=== PATIENT | female | born 1995 | race Caucasian/White ===

== ENCOUNTER 2018-02-17 10:02 | Emergency (ER) | payer BC ==
[2018-02-17 11:01] VITALS: BP 111/60
--- NOTE | 2018-02-17 11:57 | UC ---
Complaint Female HPI - HPI Summary HPI Summary: 22 year old female with UTI Sx. c/o dysuria, urinary urgency and frequency beginning this morning. macrobid allergy : GI upset no fever. no n/v/d. had these in past feels like that [ End ] - History Of Current Complaint Chief Complaint: UCGU Stated Complaint: URINARY COMPLAINT Time Seen by Provider: 02/17/18 11:26 Hx Obtained From: Patient Hx Last Menstrual Period: 02/03/18 Onset/Duration: Sudden Onset Timing: Constant Severity Initially: Moderate Severity Currently: Moderate Pain Intensity: 0 - Allergies/Home Medications Allergies/Adverse Reactions: Allergies Allergy/AdvReac Type Severity Reaction Status Date / Time nitrofurantoin AdvReac Nausea Verified 02/17/18 10:58 PMH/Surg Hx/FS Hx/Imm Hx Previously Healthy: Yes - Surgical History Surgical History: Yes Surgery Procedure, Year, and Place: T&A. B/L EAR TUBES - Family History Known Family History: Positive: Diabetes - gradma Negative: Cardiac Disease - Social History Occupation: Employed Full-time - maintainence Lives: With Family Alcohol Use: Weekly Substance Use Type: None Smoking Status (MU): Never Smoked Tobacco - Immunization History Vaccination Up to Date: Yes Review of Systems Genitourinary: Dysuria, Frequency, Urgency Is Patient Immunocompromised?: No All Other Systems Reviewed And Are Negative: Yes Physical Exam Triage Information Reviewed: Yes Appearance: Well-Appearing, No Pain Distress, Well-Nourished Vital Signs: Initial Vital Signs Temp 98.5 F 02/17/18 10:55 Pulse 62 02/17/18 10:55 Resp 15 02/17/18 10:55 BP 111/60 02/17/18 10:55 Pulse Ox 100 02/17/18 10:55 Vital Signs Reviewed: Yes Eye Exam: Normal Neck: Positive: 1 Respiratory Exam: Normal Cardiovascular Exam: Normal Abdominal Exam: Normal Musculoskeletal Exam: Normal Neurological Exam: Normal Psychological Exam: Normal Skin Exam: Normal Complaint Female Dx - Course Course Of Treatment: f/u with PCP. Treat at this time. - Differential Dx/Diagnosis Differential Diagnosis/HQI/PQRI: Urinary Tract Infection Provider Diagnoses: UTI Discharge - Sign-Out/Discharge Documenting (check all that apply): Discharge/Admit/Transfer - Discharge Plan Condition: Good Disposition: HOME Prescriptions: Sulfamethox/Trimethoprim DS* [Bactrim DS 800/160 TAB*] 1 tab PO BID 5 Days #10 tab Patient Education Materials: Urinary Tract Infection in Women (ED) Forms: *Work Release Referrals: Franc Niño [Primary Care Provider] - 1 Week - Billing Disposition and Condition Condition: GOOD Disposition: HOME
== END 2018-02-17 12:08 | disposition home or self-care (01) ==
LOC: UCCORT 10:02
DX: N39.0 Urinary tract infection, site not specified (principal); Z88.1 Allergy status to other antibiotic agents
CPT/HCPCS: 81003; 87086; 99212; G0463

== ENCOUNTER 2019-07-13 12:09 | Emergency (ER) | payer BC ==
[2019-07-13 13:16] VITALS: BP 131/74
--- NOTE | 2019-07-13 13:29 | UC ---
Throat Pain/Nasal Kameron HPI - HPI Summary HPI Summary: 23 yo with multiple concerns, including respiratory symptoms, ear discharge, chronic constipation and headaches. ~ daily sense of pressure in occipital and frontal areas, without photophobia, paresthesias, neck stiffness. Denies stress or tension. Does not have a headache today. ~hx of bilateral ear tubes 4 years ago, with drainage from the right ear x weeks. Hearing decreased. Hx of OM as a child and repeated ear tubes. ~sinus congestion. ~stools decreased chronically, worsened since she has been losing weight with altered diet. Has about 15 pounds weight loss over 2 months, exercising regularly. Feels bloated and uncomfortable at times. Probiotics made her feel worse. - History of Current Complaint Chief Complaint: UCGeneralIllness Stated Complaint: ST,NAUSEA,GALVEZ,SINUS PRESSURE Time Seen by Provider: 07/13/19 13:17 Hx Obtained From: Patient Hx Last Menstrual Period: 06/25/19 Onset/Duration: Gradual Onset, Lasting Weeks Severity: Mild Pain Intensity: 0 Cough: Nonproductive Associated Signs & Symptoms: Positive: Sinus Discomfort. Negative: Dysphagia, Hoarseness, Vomiting - Epiglottits Risk Factors Epiglottis Risk Factors: Negative - Allergies/Home Medications Allergies/Adverse Reactions: Allergies Allergy/AdvReac Type Severity Reaction Status Date / Time nitrofurantoin AdvReac Nausea Verified 07/13/19 13:12 PMH/Surg Hx/FS Hx/Imm Hx Previously Healthy: Yes Endocrine History: Other - diagnosed as pre-diabetic years ago, with recent labs. - Surgical History Surgical History: Yes Surgery Procedure, Year, and Place: Bilateral Tubes, ~2014, [facility]; T&A, ~ 1998, [place] - Family History Known Family History: Positive: Diabetes - father Negative: Cardiac Disease - Social History Occupation: Employed Full-time Lives: With Family Alcohol Use: Weekly Substance Use Type: None Smoking Status (MU): Never Smoked Tobacco - Immunization History Vaccination Up to Date: Yes Review of Systems All Other Systems Reviewed And Are Negative: Yes Constitutional: Positive: Fatigue - feeling unwell for the past week, Other - has lost weight with intent. No polyuria or polydypsia Skin: Positive: Negative Eyes: Positive: Negative ENT: Positive: Sore Throat, Ear Ache, Sinus Congestion Respiratory: Positive: Cough Cardiovascular: Positive: Negative Gastrointestinal: Positive: Other - constipation and bloating. Genitourinary: Positive: Negative Motor: Positive: Negative Neurovascular: Positive: Negative Musculoskeletal: Positive: Negative Neurological: Positive: Headache Psychological: Positive: Negative Is Patient Immunocompromised?: No Physical Exam Triage Information Reviewed: Yes Appearance: Well-Appearing, Pain Distress - mild, Obese Vital Signs: Initial Vital Signs Temp 98.6 F 07/13/19 13:06 Pulse 66 07/13/19 13:06 Resp 16 07/13/19 13:06 BP 131/74 07/13/19 13:06 Pulse Ox 100 07/13/19 13:06 Eyes: Positive: Conjunctiva Clear ENT: Positive: Pharynx normal, TM dull - bilateral TM scarring, retraction. Right canal with embedded light green discharge and tube in the canal. Dental Exam: Normal Neck: Positive: Supple, Nontender, No Lymphadenopathy Respiratory: Positive: Lungs clear, Normal breath sounds Cardiovascular: Positive: RRR, No Murmur Abdomen Description: Positive: Nontender, No Organomegaly, Soft Musculoskeletal Exam: Normal Musculoskeletal: Positive: Strength Intact, ROM Intact Neurological Exam: Normal Neurological: Positive: Alert Psychological Exam: Normal Diagnostics - Laboratory Lab Results: rapid strep negative Throat Pain/Nasal Course/Dx - Course Course Of Treatment: Begin drops for otitis externa, follow up to Dr. Haney who has treated her in the past. Tips for constipation. Strep negative. - Differential Dx/Diagnosis Differential Diagnosis/HQI/PQRI: Pharyngitis, URI, Other - otitis externa Provider Diagnosis: Right otitis externa, Chronic constipation Discharge ED - Sign-Out/Discharge Documenting (check all that apply): Patient Departure All imaging exams completed and their final reports reviewed: No Studies - Discharge Plan Condition: Good Disposition: HOME Prescriptions: Ofloxacin 0.3% (Ear Drop)* [Floxin 0.3% OTIC.ILAN (Ear Drop)] 10 drop RIGHT EAR BID #1 btl Patient Education Materials: Otitis Externa (ED), Constipation (ED) Referrals: Franc Niño [Primary Care Provider] - Additional Instructions: Rapid strep testing is NEGATIVE. Please schedule a follow up with your primary to arrange lab testing. Use floxin otic drops to the right ear and arrange a follow up with Dr. Haney. Begin use of a fiber supplement such as Benefiber, but for good effect ensure that you have a high intake of water. It is likely that the nausea is related to sluggish bowels. - Billing Disposition and Condition Condition: GOOD Disposition: Home
== END 2019-07-13 13:58 | disposition home or self-care (01) ==
LOC: UCCORT 12:09
DX: H60.91 Unspecified otitis externa, right ear (principal); K59.09 Other constipation; J02.9 Acute pharyngitis, unspecified; R09.89 Other specified symptoms and signs involving the circulatory and respiratory systems; R05 Cough; R53.83 Other fatigue; R51 Headache; Z88.8 Allergy status to other drugs, medicaments and biological substances
CPT/HCPCS: 87651; 99212; G0463